=== PATIENT | male | born 1995 | race Caucasian/White ===

== ENCOUNTER 2017-12-31 17:35 | Emergency (ER) | payer BC ==
[~2017-12-31 17:35] MED LIST: CLON-298 PO; METH54TA PO
--- NOTE | 2017-12-31 17:45 | ER Report ---
History and Physical Time Seen By MD: 17:45 HPI/ROS CHIEF COMPLAINT: Feeling unwell, believes that he may take an extra dose of Vyvanse. HISTORY OF PRESENT ILLNESS: 22-year-old male patient presents to emergency room with complaint of not feeling well. Patient states he's been feeling lightheaded , anxious and nauseous. States this been going on for last 5 hours. He states that he may have taken an extra dose of the Vyvanse today. He states he typically wakes approximately 9:30 the morning, he takes his Vyvanse and his carbamazepine angles Nain sleep. He states that he did that this morning and woke up an hour and half to 2 hours later and took an additional Vyvanse. Patient states he has not felt well since then. He denies having any vomiting, diarrhea. Patient states he is not having any chest pain. Patient states that he is unsure if he had any fevers, although states that he does not have a thermometer. REVIEW OF SYSTEMS: Respiratory: No cough, no dyspnea. Cardiovascular: No chest pain, no palpitations. Gastrointestinal: No vomiting, no abdominal pain. Musculoskeletal: No back pain. 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 Patient denies any surgical history. Reviewed Nurses Notes: Yes Hx Smoking: Yes (VAPOR) Smoking Status: Current: Some Days Smoker Hx Substance Use Disorder: Yes (BENZOS, LSD, POT) Hx Alcohol Use: Yes (3-6 4 NIGHTS A WEEK) Constitutional Vital Sign - Last 24 Hours 12/31/17 12/31/17 12/31/17 12/31/17 17:35 17:40 17:41 18:04 Temp 97.5 Pulse ??? 50 Resp 16 B/P (MAP) 155/90 (111) 155/90 141/83 (102) Pulse Ox 94 O2 Delivery Room Air 12/31/17 12/31/17 12/31/17 12/31/17 18:05 18:30 18:35 19:00 Pulse 53 56 B/P (MAP) 135/81 (99) 126/74 (91) Pulse Ox 95 99 12/31/17 12/31/17 19:05 19:10 Pulse 63 Pulse Ox 97 98 Physical Exam General Appearance: The patient is alert, has no immediate need for airway protection and no current signs of toxicity. Eyes: Pupils equal and round no injection. Respiratory: Chest is non tender, lungs are clear to auscultation. Cardiac: regular rate and rhythm Gastrointestinal: Abdomen is soft and non tender, no masses, bowel sounds normal. Musculoskeletal: Neck: Neck is supple and non tender. Extremities have full range of motion and are non tender. Skin: No rashes or lesions. DIFFERENTIAL DIAGNOSIS: After history and physical exam differential diagnosis was considered for medication taken improperly, anxiety, viral syndrome. Medical Decision Making Data Points Result Diagram: 12/31/17 1808 12/31/17 1808 Laboratory Hematology Test 12/31/17 18:08 Red Blood Count 5.55 M/uL (4.00-5.60) Mean Corpuscular Volume 88.1 fL (80.0-96.0) Mean Corpuscular Hemoglobin 31.2 pg (26.0-33.0) Mean Corpuscular Hemoglobin Concent 35.4 g/dL (32.0-36.0) Red Cell Distribution Width 12.7 % (11.5-14.5) Mean Platelet Volume 7.8 fL (7.2-11.1) Neutrophils (%) (Auto) 68.9 % (39.4-72.5) Lymphocytes (%) (Auto) 22.1 % (17.6-49.6) Monocytes (%) (Auto) 7.9 % (4.1-12.4) Eosinophils (%) (Auto) 0.4 % (0.4-6.7) Basophils (%) (Auto) 0.7 % (0.3-1.4) Nucleated RBC Relative Count (auto) 0.0 /100WBC Neutrophils # (Auto) 7.1 K/uL (2.0-7.4) Lymphocytes # (Auto) 2.3 K/uL (1.3-3.6) Monocytes # (Auto) 0.8 K/uL (0.3-1.0) Eosinophils # (Auto) 0.0 K/uL (0.0-0.5) Basophils # (Auto) 0.1 K/uL (0.0-0.1) Nucleated RBC Absolute Count (auto) 0.00 K/uL Urine Color Straw Urine Clarity Clear Urine pH 8.0 pH (4.8-9.5) Urine Specific [place] 1.006 Urine Protein Negative mg/dL (NEGATIVE) Urine Glucose (UA) Negative mg/dL (NEGATIVE) Urine Ketones Negative mg/dL (NEGATIVE) Urine Blood Negative (NEGATIVE) Urine Nitrite Negative (NEGATIVE) Urine Bilirubin Negative (NEGATIVE) Urine Urobilinogen Negative mg/dL (0.2-1.9) Urine Leukocyte Esterase Negative (NEGATIVE) Urine RBC None /HPF (0-2/HPF) Urine WBC <1 /HPF (0-5/HPF) Urine Squamous Epithelial Cells Few /LPF (</=FEW) Urine Bacteria Negative /HPF (NONE-FEW) Urine Mucus None /HPF (NONE-FEW) Sodium Level 137 mmol/L (137-145) Potassium Level 3.4 mmol/L (3.5-5.0) Chloride Level 97 mmol/L (98-107) Carbon Dioxide Level 24 mmol/L (22-30) Blood Urea Nitrogen 9 mg/dl (9-21) Creatinine 1.00 mg/dl (0.66-1.25) Glomerular Filtration Rate Calc > 60.0 Random Glucose 104 mg/dl (75-110) Calcium Level 10.1 mg/dl (8.4-10.2) Total Bilirubin 0.6 mg/dl (0.2-1.3) Aspartate Amino Transf (AST/SGOT) 26 U/L (0-35) Alanine Aminotransferase (ALT/SGPT) 32 U/L (0-56) Alkaline Phosphatase 75 U/L (0-126) Troponin I < 0.012 ng/ml Total Protein 6.2 gm/dl (6.3-8.2) Albumin 4.5 g/dl (3.5-5.0) Urine Opiates Screen Negative Urine Barbiturates Screen Negative Ur Tricyclic Antidepressants Screen Negative Urine Phencyclidine Screen Negative Urine Amphetamines Screen Negative Urine Benzodiazepines Screen Negative Urine Cocaine Screen Negative Urine Cannabinoids Screen Negative Chemistry Test 12/31/17 18:08 White Blood Count 10.3 k/uL (4.5-11.0) Red Blood Count 5.55 M/uL (4.00-5.60) Hemoglobin 17.3 g/dL (14.0-18.0) Hematocrit 48.9 % (42.0-52.0) Mean Corpuscular Volume 88.1 fL (80.0-96.0) Mean Corpuscular Hemoglobin 31.2 pg (26.0-33.0) Mean Corpuscular Hemoglobin Concent 35.4 g/dL (32.0-36.0) Red Cell Distribution Width 12.7 % (11.5-14.5) Platelet Count 261 K/uL (150-450) Mean Platelet Volume 7.8 fL (7.2-11.1) Neutrophils (%) (Auto) 68.9 % (39.4-72.5) Lymphocytes (%) (Auto) 22.1 % (17.6-49.6) Monocytes (%) (Auto) 7.9 % (4.1-12.4) Eosinophils (%) (Auto) 0.4 % (0.4-6.7) Basophils (%) (Auto) 0.7 % (0.3-1.4) Nucleated RBC Relative Count (auto) 0.0 /100WBC Neutrophils # (Auto) 7.1 K/uL (2.0-7.4) Lymphocytes # (Auto) 2.3 K/uL (1.3-3.6) Monocytes # (Auto) 0.8 K/uL (0.3-1.0) Eosinophils # (Auto) 0.0 K/uL (0.0-0.5) Basophils # (Auto) 0.1 K/uL (0.0-0.1) Nucleated RBC Absolute Count (auto) 0.00 K/uL Urine Color Straw Urine Clarity Clear Urine pH 8.0 pH (4.8-9.5) Urine Specific [place] 1.006 Urine Protein Negative mg/dL (NEGATIVE) Urine Glucose (UA) Negative mg/dL (NEGATIVE) Urine Ketones Negative mg/dL (NEGATIVE) Urine Blood Negative (NEGATIVE) Urine Nitrite Negative (NEGATIVE) Urine Bilirubin Negative (NEGATIVE) Urine Urobilinogen Negative mg/dL (0.2-1.9) Urine Leukocyte Esterase Negative (NEGATIVE) Urine RBC None /HPF (0-2/HPF) Urine WBC <1 /HPF (0-5/HPF) Urine Squamous Epithelial Cells Few /LPF (</=FEW) Urine Bacteria Negative /HPF (NONE-FEW) Urine Mucus None /HPF (NONE-FEW) Glomerular Filtration Rate Calc > 60.0 Calcium Level 10.1 mg/dl (8.4-10.2) Total Bilirubin 0.6 mg/dl (0.2-1.3) Aspartate Amino Transf (AST/SGOT) 26 U/L (0-35) Alanine Aminotransferase (ALT/SGPT) 32 U/L (0-56) Alkaline Phosphatase 75 U/L (0-126) Troponin I < 0.012 ng/ml Total Protein 6.2 gm/dl (6.3-8.2) Albumin 4.5 g/dl (3.5-5.0) Urine Opiates Screen Negative Urine Barbiturates Screen Negative Ur Tricyclic Antidepressants Screen Negative Urine Phencyclidine Screen Negative Urine Amphetamines Screen Negative Urine Benzodiazepines Screen Negative Urine Cocaine Screen Negative Urine Cannabinoids Screen Negative Toxicology Test 12/31/17 18:08 Urine Opiates Screen Negative Urine Barbiturates Screen Negative Ur Tricyclic Antidepressants Screen Negative Urine Phencyclidine Screen Negative Urine Amphetamines Screen Negative Urine Benzodiazepines Screen Negative Urine Cocaine Screen Negative Urine Cannabinoids Screen Negative Urinalysis Test 12/31/17 18:08 Urine Color Straw Urine Clarity Clear Urine pH 8.0 pH (4.8-9.5) Urine Specific [place] 1.006 Urine Protein Negative mg/dL (NEGATIVE) Urine Glucose (UA) Negative mg/dL (NEGATIVE) Urine Ketones Negative mg/dL (NEGATIVE) Urine Blood Negative (NEGATIVE) Urine Nitrite Negative (NEGATIVE) Urine Bilirubin Negative (NEGATIVE) Urine Urobilinogen Negative mg/dL (0.2-1.9) Urine Leukocyte Esterase Negative (NEGATIVE) Urine RBC None /HPF (0-2/HPF) Urine WBC <1 /HPF (0-5/HPF) Urine Squamous Epithelial Cells Few /LPF (</=FEW) Urine Bacteria Negative /HPF (NONE-FEW) Urine Mucus None /HPF (NONE-FEW) EKG/Imaging EKG Interpretation 12 lead EKG: Rhythm: Sinus bradycardia [place]: Left axis deviation QRS: normal ST segments: normal Imaging EXAMINATION: Chest radiographs 2 views HISTORY: Not feeling well. COMPARISON: None. FINDINGS: PA and lateral views of the chest are submitted. Lines/tubes: None. Lungs/pleura: No focal consolidation or pleural effusion. Heart: Negative. Mediastinum: Negative. Bony structures/body wall: Negative. IMPRESSION: No radiographic evidence of acute cardiopulmonary disease. Report Dictated By: Marline Mcintyre MD at 12/31/2017 6:48 PM Report E-Signed By: Marline Mcintyre MD at 12/31/2017 6:49 PM ED Course/Re-evaluation ED Course Patient was admitted to an exam room, history and physical were obtained. Differential diagnoses were considered. On examination lungs are clear, heart is regular, abdomen soft nontender. A CBC, CMP, troponin, EKG, chest x-ray were done. Lab results were unremarkable, EKG showed a normal sinus rhythm, chest x- ray was negative. Patient had an IV placed received a liter of normal saline. On reevaluation informed patient that everything is good as far as labs show. Patient states that he is feeling a little bit better. I did discuss with him that I spoken with poison control, , their thought was that he would have adverse effects of the medication, increased anxiousness, jittery. I believe that is likely the symptoms that he was feeling. Patient will be discharged home this time. He is to follow-up with his primary care provider in the next week. He is to the emergency room if condition worsens. I discussed the patient who verbalized understanding and agreement with plan. Decision to Disposition Date: Dec 31, 2017 Decision to Disposition Time: 19:11 Depart Departure Latest Vital Signs Vital Signs Date Time Temp Pulse Resp B/P (MAP) Pulse Ox O2 Delivery O2 Flow Rate FiO2 12/31/17 19:10 98 12/31/17 19:05 63 12/31/17 19:00 126/74 (91) 12/31/17 17:41 97.5 16 Room Air Impression: Primary Impression: Adverse drug effect Condition: Improved Disposition: HOME OR SELF-CARE Patient Instructions: Adverse Drug Reaction (ED) Additional Instructions: Increase fluid intake. Get plenty of rest. Follow up with your primary care provider in the next week. Don't take more of your Vyvanse than is prescribed. Return to the ER if condition worsens. Problem Qualifiers Primary Impression: Adverse drug effect Encounter type: initial encounter Qualified Codes: T88.7XXA - Unspecified adverse effect of drug or medicament, initial encounter LENKA TIRADO Dec 31, 2017 17:45
[2017-12-31] MEDS ORDERED: LISD40PT PO (17:47)
[2017-12-31] MEDS ORDERED: CARB-90 PO (17:47)
[2017-12-31 18:16] LABS: PLATELET COUNT, AUTOMATED 261 K/uL (150-450)
--- NOTE | 2017-12-31 18:43 | EKG ---
FACILITY: [facility] PATIENT NAME: CLAUDE MCCARTNEY : [id number] MR: [id number] V: [id number] EXAM DATE: ORDERING PHYSICIAN: LENKA TIRADO TECHNOLOGIST: SUYAPA Stevenson Reason : POSS OD Blood Pressure : / mmHG Vent. Rate : 055 BPM Atrial Rate : 055 BPM P-R Int : 140 ms QRS Dur : 084 ms QT Int : 410 ms P-R-T Axes : 033 -43 003 degrees QTc Int : 392 ms Sinus bradycardia Left axis deviation Abnormal ECG No previous ECGs available Confirmed by SHANE VALERIO ([id number]) on 12/31/2017 9:17:16 PM Referred By: CELESTINO Confirmed By:SHANE VALERIO
--- NOTE | 2017-12-31 18:53 | RADIOLOGY IMAGING REPORT ---
FACILITY: PATIENT NAME: Paddy Vale : 1995 MR: [id number] V: [id number] EXAM DATE: ORDERING PHYSICIAN: LENKA TIRADO TECHNOLOGIST: [facility] Patient: Paddy Vale : 1995 Visit/Account:[id number] Date of Sevice: 12/31/2017 EXAMINATION: Chest radiographs 2 views HISTORY: Not feeling well. COMPARISON: None. FINDINGS: PA and lateral views of the chest are submitted. Lines/tubes: None. Lungs/pleura: No focal consolidation or pleural effusion. Heart: Negative. Mediastinum: Negative. Bony structures/body wall: Negative. IMPRESSION: No radiographic evidence of acute cardiopulmonary disease. Report Dictated By: Marline Mcintyre MD at 12/31/2017 6:48 PM Report E-Signed By: Marline Mcintyre MD at 12/31/2017 6:49 PM WSN:[id number]
[2017-12-31 19:00] VITALS: BP 126/74
== END 2017-12-31 19:18 | disposition home or self-care (01) ==
LOC: ER 17:46
DX: T88.7XXA Unspecified adverse effect of drug or medicament, initial encounter (principal); R00.1 Bradycardia, unspecified; R94.31 Abnormal electrocardiogram [ECG] [EKG]
CPT/HCPCS: 71046; 80305; 81001; 82040; 82247; 82310; 82374; 82435; 82565; 82947; 84075; 84132; 84155; 84295; 84450; 84460; 84484; 84520; 85025; 93005; 99284

== ENCOUNTER 2018-01-28 20:08 | Emergency (ER) | payer SELFPAY ==
--- NOTE | 2018-01-28 20:33 | EKG ---
FACILITY: [facility] [place] PATIENT NAME: CLAUDE MCCARTNEY : [id number] MR: [id number] V: [id number] EXAM DATE: ORDERING PHYSICIAN: CASIMIRO VALLEJO TECHNOLOGIST: SALIMA Test Reason : PALPITATIONS Blood Pressure : / mmHG Vent. Rate : 131 BPM Atrial Rate : 267 BPM P-R Int : 000 ms QRS Dur : 082 ms QT Int : 308 ms P-R-T Axes : 000 -17 004 degrees QTc Int : 454 ms Atrial fibrillation with rapid ventricular response Abnormal ECG When compared with ECG of 31-DEC-2017 17:51, Atrial fibrillation has replaced Sinus rhythm Vent. rate has increased BY 76 BPM RSR' pattern in V1 is now present Confirmed by PARKER PIMENTEL ([id number]) on 01/28/2018 8:40:31 PM Referred By: GENEVIEVE Confirmed By:PARKER PIMENTEL
[2018-01-28 20:35] LABS: PLATELET COUNT, AUTOMATED 299 K/uL (150-450)
[2018-01-28] MEDS ORDERED: DILTIAZEM 5 MG/ML 5ML IVPUSH IVP ONE (20:35)
[2018-01-28 20:49] LABS: INR 0.96
--- NOTE | 2018-01-28 20:56 | RADIOLOGY IMAGING REPORT ---
FACILITY: [facility] PATIENT NAME: Paddy Vale : 1995 MR: [id number] V: [id number] EXAM DATE: ORDERING PHYSICIAN: CASIMIRO VALLEJO TECHNOLOGIST: Location: [facility] Patient: Paddy Vale : 1995 Visit/Account:[id number] Date of Sevice: 01/28/2018 PORTABLE CHEST: Indication: Irregular heartbeat. Technique: A single frontal film was obtained. Comparison: 12/31/2017 Skeletal and soft tissue structures: Intact and unremarkable. Heart and mediastinum: Within normal limits. Lung arcos: Well-expanded and clear. No focal opacities. No vascular congestion. Pleural spaces: Unremarkable. Impression: No acute process or significant change. Report Dictated By: Juan Mcarthur MD at 01/28/2018 8:51 PM Report E-Signed By: Juan Mcarthur MD at 01/28/2018 8:52 PM WSN:[id number]
[2018-01-28] MEDS ORDERED: METOPROLOL TART 5 MG/5 ML VIAL IVP ONE ×3 (21:00→22:15)
--- NOTE | 2018-01-28 22:17 | ER Report ---
History and Physical Time Seen By MD: 20:10 Hx. of Stated Complaint: pT STATES HE FEELS ARRYTHMIA AND PALPATATIONS. aFTER HE DRINKS COLD WATER. pt took 80mg of a friends propanolol before coming to ER and 325 of aspirin. HPI/ROS CHIEF COMPLAINT: Palpations HISTORY OF PRESENT ILLNESS: Patient is a 22-year-old male who presents the ED with complaint of palpitations that started about 2-3 hours ago. He states that he has felt these palpitations in the past but usually have been short-lived. He states that this is the longest his palpitations have lasted. He denies any recent alcohol or drug use. He states that he is usually on Vyvanse but states that he has not been taking this for the past couple weeks. Patient states that he has been diagnosed with some withdrawal seizures from being on benzodiazepines and is currently on Tegretol and carbamazepine for this. He denies any chest pain or shortness of breath. He has not noted any leg swelling. REVIEW OF SYSTEMS: Constitutional: No fever, no chills. Eyes: No discharge. ENT: No sore throat. Cardiovascular: See history of present illness. Respiratory: No cough, no shortness of breath. Gastrointestinal: No abdominal pain, no vomiting. Genitourinary: No hematuria. Musculoskeletal: No back pain. Skin: No rashes. Neurological: No headache. Allergies: Coded Allergies: No Known Drug Allergies (Unverified , 12/18/15) Home Meds Reported Medications Carbamazepine (EPITOL) 200 Mg Tablet, 200 MG PO 12/31/17 Lisdexamfetamine Dimesylate (VYVANSE) 40 Mg Capsule, 40 MG PO QDAY, CAPSULE 12/31/17 Reviewed Nurses Notes: Yes Old Medical Records Reviewed: Yes Hx Smoking: Yes (VAPOR) Smoking Status: Current: Some Days Smoker Hx Substance Use Disorder: Yes (BENZOS (REHAB FOR A MONTH IN 2017), LSD, ECSTASY, POT) Hx Alcohol Use: No Constitutional Vital Sign - Last 24 Hours 01/28/18 01/28/18 01/28/18 20:14 21:46 22:44 Temp 98.7 Pulse 120 97 105 Resp 16 16 B/P (MAP) 147/119 120/87 (98) 145/98 (114) Pulse Ox 97 98 96 O2 Delivery Room Air Room Air Room Air Physical Exam General Appearance: The patient is alert, has no immediate need for airway protection and no signs of toxicity. Patient appears to be in no acute distress. Eyes: Pupils equal and round no pallor or injection. ENT, Mouth: Mucous membranes are moist. Respiratory: There are no retractions, lungs are clear to auscultation. Cardiovascular: Irregularly irregular and tachycardic Gastrointestinal: Abdomen is soft and non tender, no masses, bowel sounds normal. Neurological: Cranial nerves II-12 intact. Skin: Warm and dry, no rashes. Musculoskeletal: Neck is supple non tender. Extremities are nontender, nonswollen and have full range of motion. Medical Decision Making Data Points Result Diagram: 01/28/18202501/28/182025 Laboratory Hematology Test 01/28/18 20:26 01/28/18 21:18 Red Blood Count 5.57 M/uL (4.00-5.60) Mean Corpuscular Volume 88.7 fL (80.0-96.0) Mean Corpuscular Hemoglobin 31.0 pg (26.0-33.0) Mean Corpuscular Hemoglobin Concent 34.9 g/dL (32.0-36.0) Red Cell Distribution Width 12.9 % (11.5-14.5) Mean Platelet Volume 8.2 fL (7.2-11.1) Neutrophils (%) (Auto) 53.3 % (39.4-72.5) Lymphocytes (%) (Auto) 35.4 % (17.6-49.6) Monocytes (%) (Auto) 9.0 % (4.1-12.4) Eosinophils (%) (Auto) 0.8 % (0.4-6.7) Basophils (%) (Auto) 1.5 % (0.3-1.4) Nucleated RBC Relative Count (auto) 0.0 /100WBC Neutrophils # (Auto) 5.7 K/uL (2.0-7.4) Lymphocytes # (Auto) 3.8 K/uL (1.3-3.6) Monocytes # (Auto) 1.0 K/uL (0.3-1.0) Eosinophils # (Auto) 0.1 K/uL (0.0-0.5) Basophils # (Auto) 0.2 K/uL (0.0-0.1) Nucleated RBC Absolute Count (auto) 0.00 K/uL Prothrombin Time 12.8 seconds (12.0-14.4) Prothromb Time International Ratio 0.96 Activated Partial Thromboplast Time 28 seconds (23-35) D-Dimer Quantitative (PE/DVT) < 0.27 ug/ml (0-0.50) Sodium Level 144 mmol/L (137-145) Potassium Level 3.7 mmol/L (3.5-5.0) Chloride Level 100 mmol/L (98-107) Carbon Dioxide Level 27 mmol/L (22-30) Blood Urea Nitrogen 20 mg/dl (9-21) Creatinine 1.40 mg/dl (0.66-1.25) Glomerular Filtration Rate Calc > 60.0 Random Glucose 96 mg/dl (75-110) Calcium Level 9.6 mg/dl (8.4-10.2) Total Bilirubin 0.4 mg/dl (0.2-1.3) Aspartate Amino Transf (AST/SGOT) 40 U/L (0-35) Alanine Aminotransferase (ALT/SGPT) 34 U/L (0-56) Alkaline Phosphatase 87 U/L (0-126) Troponin I < 0.012 ng/ml B-Type Natriuretic Peptide 25 pg/ml (0-100) Total Protein 8.9 g/dl (6.3-8.2) Albumin 5.1 g/dl (3.5-5.0) Urine Opiates Screen Negative Urine Barbiturates Screen Negative Ur Tricyclic Antidepressants Screen Negative Urine Phencyclidine Screen Negative Urine Amphetamines Screen Negative Urine Benzodiazepines Screen Negative Urine Cocaine Screen Negative Urine Cannabinoids Screen Negative Chemistry Test 01/28/18 20:26 01/28/18 21:18 White Blood Count 10.7 k/uL (4.5-11.0) Red Blood Count 5.57 M/uL (4.00-5.60) Hemoglobin 17.2 g/dL (14.0-18.0) Hematocrit 49.4 % (42.0-52.0) Mean Corpuscular Volume 88.7 fL (80.0-96.0) Mean Corpuscular Hemoglobin 31.0 pg (26.0-33.0) Mean Corpuscular Hemoglobin Concent 34.9 g/dL (32.0-36.0) Red Cell Distribution Width 12.9 % (11.5-14.5) Platelet Count 299 K/uL (150-450) Mean Platelet Volume 8.2 fL (7.2-11.1) Neutrophils (%) (Auto) 53.3 % (39.4-72.5) Lymphocytes (%) (Auto) 35.4 % (17.6-49.6) Monocytes (%) (Auto) 9.0 % (4.1-12.4) Eosinophils (%) (Auto) 0.8 % (0.4-6.7) Basophils (%) (Auto) 1.5 % (0.3-1.4) Nucleated RBC Relative Count (auto) 0.0 /100WBC Neutrophils # (Auto) 5.7 K/uL (2.0-7.4) Lymphocytes # (Auto) 3.8 K/uL (1.3-3.6) Monocytes # (Auto) 1.0 K/uL (0.3-1.0) Eosinophils # (Auto) 0.1 K/uL (0.0-0.5) Basophils # (Auto) 0.2 K/uL (0.0-0.1) Nucleated RBC Absolute Count (auto) 0.00 K/uL Prothrombin Time 12.8 seconds (12.0-14.4) Prothromb Time International Ratio 0.96 Activated Partial Thromboplast Time 28 seconds (23-35) D-Dimer Quantitative (PE/DVT) < 0.27 ug/ml (0-0.50) Glomerular Filtration Rate Calc > 60.0 Calcium Level 9.6 mg/dl (8.4-10.2) Total Bilirubin 0.4 mg/dl (0.2-1.3) Aspartate Amino Transf (AST/SGOT) 40 U/L (0-35) Alanine Aminotransferase (ALT/SGPT) 34 U/L (0-56) Alkaline Phosphatase 87 U/L (0-126) Troponin I < 0.012 ng/ml B-Type Natriuretic Peptide 25 pg/ml (0-100) Total Protein 8.9 g/dl (6.3-8.2) Albumin 5.1 g/dl (3.5-5.0) Urine Opiates Screen Negative Urine Barbiturates Screen Negative Ur Tricyclic Antidepressants Screen Negative Urine Phencyclidine Screen Negative Urine Amphetamines Screen Negative Urine Benzodiazepines Screen Negative Urine Cocaine Screen Negative Urine Cannabinoids Screen Negative Coagulation Test 01/28/18 20:26 Prothrombin Time 12.8 seconds Prothromb Time International Ratio 0.96 Activated Partial Thromboplast Time 28 seconds D-Dimer Quantitative (PE/DVT) < 0.27 ug/ml Toxicology Test 01/28/18 21:18 Urine Opiates Screen Negative Urine Barbiturates Screen Negative Ur Tricyclic Antidepressants Screen Negative Urine Phencyclidine Screen Negative Urine Amphetamines Screen Negative Urine Benzodiazepines Screen Negative Urine Cocaine Screen Negative Urine Cannabinoids Screen Negative EKG/Imaging EKG Interpretation 12 lead EKG: Rhythm: Intrafibrillation with rapid ventricular response, rate 131 bpm [place]: normal QRS: normal ST segments: No acute ST changes identified. Some T-wave inversion in V1. Monitor Interpretation: Atrial Fibrillation Imaging CXR: Impression: No acute process or significant change. Report Dictated By: Juan Mcarthur MD at 01/28/2018 8:51 PM Report E-Signed By: Juan Mcarthur MD at 01/28/2018 8:52 PM ED Course/Re-evaluation ED Course Will obtain labs, chest x-ray, EKG. He appears to be in atrial fibrillation with rapid ventricular rate. Initially wanted to give the patient Cardizem 20 mg IV however pharmacy states that there is interaction with carbamazepine and therefore should choose another drug. Patient was given 5 of metoprolol IV. This did bring down his rate to the 110 to 120s he is given 2 additional doses of 5 mg IV and continues to be in atrial fibrillation with rate around 110. 01/28/2018 10:57:35 pm - discussed patient withDr. Wheatley, Hospitalist at [facility], who will accept patient under his care for telemetry and cardiology input. Decision to Disposition Date: Jan 28, 2018 Decision to Disposition Time: 22:58 Depart Departure Latest Vital Signs Vital Signs Date Time Temp Pulse Resp B/P (MAP) Pulse Ox O2 Delivery O2 Flow Rate FiO2 01/28/18 22:44 105 145/98 (114) 96 Room Air 01/28/18 21:46 16 01/28/18 20:14 98.7 Impression: Primary Impression: Atrial fibrillation Condition: Improved Disposition: XFER TO [facility] MD Consult Note: Dr. Wheatley, Hospitalist Problem Qualifiers Primary Impression: Atrial fibrillation Atrial fibrillation type: unspecified Qualified Codes: I48.91 - Unspecified atrial fibrillation CASIMIRO VALLEJO PA-C Jan 28, 2018 22:17
--- NOTE | 2018-01-28 23:03 | EKG ---
FACILITY: [facility] [place] PATIENT NAME: CLAUDE MCCARTNEY : [id number] MR: [id number] V: [id number] EXAM DATE: ORDERING PHYSICIAN: CASIMIRO VALLEJO TECHNOLOGIST: SALIMA Test Reason : TACHYCARDIA Blood Pressure : / mmHG Vent. Rate : 099 BPM Atrial Rate : 182 BPM P-R Int : 000 ms QRS Dur : 080 ms QT Int : 326 ms P-R-T Axes : 000 -27 023 degrees QTc Int : 418 ms Atrial fibrillation Abnormal ECG Ventricular rate is down 32 bpm compared to previous Confirmed by PARKER PIMENTEL ([id number]) on 01/29/2018 6:26:51 AM Referred By: GENEVIEVE Confirmed By:PARKER PIMENTEL
[2018-01-28] MEDS ORDERED: CARB-90 PO (23:07)
[2018-01-28 23:15] VITALS: BP 142/78
== END 2018-01-28 23:38 | disposition short-term general hospital (02) ==
LOC: ER 20:14
DX: I48.91 Unspecified atrial fibrillation (principal)
CPT/HCPCS: 71045; 80305; 83880; 84484; 85025; 85379; 85610; 85730; 93005; 96374; 96375; 96376; 99285; J3490; 82040; 82247; 82310; 82374; 82435; 82565; 82947; 84075; 84132; 84155; 84295; 84450; 84460; 84520

== ENCOUNTER → 2018-01-28 | Outpatient (CLI) | payer SELFPAY ==
[~2018-01-28] MED LIST changes: +CARB-90 PO; +LISD40PT PO
== END ==
LOC: AMB 23:23
PROVIDERS: ATTEND Nurse Practitioner
DX: I48.91 Unspecified atrial fibrillation (principal); R07.89 Other chest pain
CPT/HCPCS: A0425; A0426